=== PATIENT | female | born 1995 | race Caucasian/White ===

== ENCOUNTER 2020-10-17 10:08 | Emergency (ER) | payer SELFPAY ==
[~2020-10-17] VITALS: Ht 170.2 cm; Wt 61.0 kg
[2020-10-17] MEDS ORDERED: ACETAMINOPHEN 500 MG TABLET PO ONE (10:45)
[2020-10-17] MEDS ORDERED: FLUORESCEIN SODIUM 1 MG STRIP OD ONE (10:45)
[2020-10-17] MEDS ORDERED: PROPARACAINE HCL 0.5% 15 ML OPHTHALMIC SOLUTION OD ONE (10:45)
[2020-10-17 11:40] VITALS: BP 115/82
[2020-10-17] MEDS ORDERED: CLINDAMYCIN HCL 150 MG CAPSULE PO ONE (11:45)
== END 2020-10-17 12:02 | disposition home or self-care (01) ==
LOC: EMS 10:12
DX: S05.01XA Injury of conjunctiva and corneal abrasion without foreign body, right eye, initial encounter (principal); X58.XXXA Exposure to other specified factors, initial encounter; Y93.89 Activity, other specified; Y92.89 Other specified places as the place of occurrence of the external cause; Y99.8 Other external cause status
CPT/HCPCS: 99284; Z7502; Z7610

== ENCOUNTER 2020-10-25 07:55 | Emergency (ER) | payer MEDICAID ==
[~2020-10-25] VITALS: Ht 170.2 cm; Wt 63.6 kg
[2020-10-25 07:56] VITALS: BP 119/87
[2020-10-25] MEDS ORDERED: PROPARACAINE HCL 0.5% 15 ML OPHTHALMIC SOLUTION OU ONE (08:15)
[2020-10-25] MEDS ORDERED: VANCOMYCIN OD (08:19)
[2020-10-25] MEDS ORDERED: CYCL12OS OD (08:19)
[2020-10-25] MEDS ORDERED: MOXIOS OD (08:19)
[2020-10-25] MEDS ORDERED: HYDR-4723 PO (08:19)
[2020-10-25] MEDS ORDERED: FLUORESCEIN SODIUM 1 MG STRIP ONE (08:20)
== END 2020-10-25 09:22 | disposition home or self-care (01) ==
LOC: EMS 08:00
DX: S05.01XA Injury of conjunctiva and corneal abrasion without foreign body, right eye, initial encounter (principal); X58.XXXA Exposure to other specified factors, initial encounter; Y93.89 Activity, other specified; Y92.89 Other specified places as the place of occurrence of the external cause; Y99.8 Other external cause status
CPT/HCPCS: 99173; 99283

== ENCOUNTER 2020-11-06 00:05 | Emergency (ER) | payer MEDICAID ==
[~2020-11-06] VITALS: Ht 170.2 cm; Wt 60.9 kg
[~2020-11-06 00:05] MED LIST: CYCL12OS OD; HYDR-4723 PO; MOXIOS OD; VANCOMYCIN OD
[2020-11-06 01:00] VITALS: BP 108/60
[2020-11-06] MEDS ORDERED: PROPARACAINE HCL 0.5% 15 ML OPHTHALMIC SOLUTION OD ONE (01:00)
[2020-11-06] MEDS ORDERED: FLUORESCEIN SODIUM 1 MG STRIP OD ONE (01:00)
== END 2020-11-06 01:15 | disposition home or self-care (01) ==
LOC: EMS 00:06
DX: H16.001 Unspecified corneal ulcer, right eye (principal)
CPT/HCPCS: 99282; Z7502

== ENCOUNTER 2020-11-08 07:57 | Emergency (ER) | payer MEDICAID ==
[~2020-11-08] VITALS: Ht 170.2 cm; Wt 60.9 kg
[2020-11-08] MEDS ORDERED: TOBR5DRO43 OU (08:04)
[2020-11-08] MEDS ORDERED: PROPARACAINE HCL 0.5% 15 ML OPHTHALMIC SOLUTION OD ONE (08:30)
[2020-11-08 08:31] VITALS: BP 141/86
== END 2020-11-08 09:02 | disposition home or self-care (01) ==
LOC: EMS 08:00
DX: H16.001 Unspecified corneal ulcer, right eye (principal); Z91.018 Allergy to other foods
CPT/HCPCS: 99283

== ENCOUNTER 2023-03-16 14:25 | Emergency (ER) | payer MEDICAID, OTHER ==
[~2023-03-16] VITALS: Ht 170.2 cm; Wt 65.9 kg
[~2023-03-16 14:25] MED LIST changes: +MOXI3DRO25 OD; -MOXIOS OD; +TOBR5DRO43 OU
[2023-03-16 14:27] VITALS: TEMP 98.5
[2023-03-16] MEDS ORDERED: KETOROLAC TROMETHAMINE 30 MG/ML VIAL IVP ONE (15:30)
[2023-03-16] MEDS ORDERED: ONDANSETRON HCL 4 MG/2 ML VIAL IVP ONE (15:30)
[2023-03-16] MEDS ORDERED: SODIUM CHLORIDE 0.9% 1,000 ML IV ONE (15:30)
[2023-03-16 15:55] LABS: BASOPHILS % (AUTO) 0.5 % (0.0-2.0); EOSINOPHILS % (AUTO) 0.1 % (1.0-6.0); HEMATOCRIT 41.4 % (36-46); HEMOGLOBIN 13.7 g/dL (12.0-16.0); LYMPHOCYTES # (AUTO) 0.8 K/uL (1.0-4.8); LYMPHOCYTES % (AUTO) 11.5 % (22.0-44.0); MEAN CORPUSCULAR HEMOGLOBIN 28.3 pg (26.0-34.0); MEAN CORPUSCULAR VOLUME 86 fL (80-100); MONOCYTES # (AUTO) 0.1 K/uL (0.1-1.0); MONOCYTES % (AUTO) 1.9 % (2.0-9.0); NEUTROPHILS # (AUTO) 6.2 K/uL (1.8-7.7); PLATELET COUNT (AUTO) 327 K/uL (150-450); RED BLOOD CELL COUNT(AUTO) 4.84 MIL/uL (4.00-5.20); WHITE BLOOD COUNT (AUTO) 7.2 K/uL (4.5-11.0)
[2023-03-16 16:04] LABS: ANION GAP 15 mmol/L (8-16); CALCIUM, TOTAL 10.1 mg/dL (8.8-10.5); CARBON DIOXIDE 22 mmol/L (22-29); CHLORIDE 102 mmol/L (98-107); CREATININE 0.67 mg/dL (0.60-1.30); GLOMERULAR FILTR. RATE CALC > 60 mL/min (>60); GLUCOSE,RANDOM 123 mg/dL (70-110); POTASSIUM 3.6 mmol/L (3.5-5.1); SODIUM SERUM 139 mmol/L (136-145); UREA NITROGEN, BLOOD 8 mg/dL (7-18)
[2023-03-16 16:17] LABS: ALANINE AMINOTRANSFERASE 12 U/L (12-78); ALBUMIN 4.3 g/dL (3.4-5.0); ALKALINE PHOSPHATASE 79 U/L (46-116); ASPARTATE AMINOTRANSFERASE 16 U/L (15-37); BILIRUBIN,TOTAL 0.6 mg/dL (0.1-1.0); HCG,QUANTITATIVE < 1 mIU/mL (0-6); TOTAL PROTEIN, SERUM 7.9 g/dL (6.4-8.2)
[2023-03-16] MEDS ORDERED: ACETAMINOPHEN 1000 MG/ISO-OSM 100 ML IV ONE (16:45)
[2023-03-16] MEDS ORDERED: CloNIDine HCL 0.2 MG TABLET PO ONE (16:45)
[2023-03-16] MEDS ORDERED: CLON-441 PO (17:50)
[2023-03-16] MEDS ORDERED: ONDA-104 PO (17:50)
[2023-03-16] MEDS ORDERED: IBUP-1492 PO (17:50)
[2023-03-16 17:58] VITALS: BP 126/74; PULSE 83; RESP 16
== END 2023-03-16 18:47 | disposition home or self-care (01) ==
LOC: EMS 14:43
DX: F11.23 Opioid dependence with withdrawal (principal); Z91.018 Allergy to other foods
CPT/HCPCS: 99284; 96365; 96375; 96361; 80053; 84702; 85025; 36415; J1885; J2405; J7030; J0131

== ENCOUNTER 2023-03-17 13:16 | Inpatient (IN) | payer OTHER ==
[~2023-03-17] VITALS: Ht 170.2 cm; Wt 65.9 kg
[~2023-03-17 13:16] MED LIST changes: +CLON-441 PO; +IBUP-1492 PO; +ONDA-104 PO
[2023-03-17] MEDS ORDERED: DIPHENOXYLATE/ATROP 2.5-0.025 MG TABLET PO ONE (14:30)
[2023-03-17] MEDS ORDERED: BUPRENORPHINE HCL/NALOXONE HCL 8-2 MG SUBLINGUAL TABLET SL ONE (14:30)
[2023-03-17] MEDS ORDERED: KETOROLAC TROMETHAMINE 30 MG/ML VIAL IVP ONE (14:30)
[2023-03-17] MEDS ORDERED: SODIUM CHLORIDE 0.9% 2,000 ML IV ONE (14:30)
[2023-03-17] MEDS ORDERED: ONDANSETRON HCL 4 MG/2 ML VIAL IVP ONE (14:30)
[2023-03-17 15:22] LABS: BASOPHILS % (AUTO) 0.2 % (0.0-2.0); EOSINOPHILS % (AUTO) 0.4 % (1.0-6.0); HEMATOCRIT 42.1 % (36-46); HEMOGLOBIN 14.1 g/dL (12.0-16.0); LYMPHOCYTES % (AUTO) 10.9 % (22.0-44.0); MEAN CORPUSCULAR HEMOGLOBIN 28.8 pg (26.0-34.0); MEAN CORPUSCULAR HGB CONC 33.5 G/dL (31.0-37.0); MEAN CORPUSCULAR VOLUME 86 fL (80-100); MONOCYTES # (AUTO) 0.4 K/uL (0.1-1.0); NEUTROPHILS # (AUTO) 7.5 K/uL (1.8-7.7); NEUTROPHILS % (AUTO) 84.5 % (40.0-70.0); PLATELET COUNT (AUTO) 282 K/uL (150-450); RED CELL DISTRIBUTION WIDTH 13.3 % (11.5-14.5); WHITE BLOOD COUNT (AUTO) 8.9 K/uL (4.5-11.0)
[2023-03-17 15:32] LABS: ANION GAP 13 mmol/L (8-16); CALCIUM, TOTAL 9.9 mg/dL (8.8-10.5); CARBON DIOXIDE 22 mmol/L (22-29); CHLORIDE 105 mmol/L (98-107); CREATININE 0.72 mg/dL (0.60-1.30); GLOMERULAR FILTR. RATE CALC > 60 mL/min (>60); GLUCOSE,RANDOM 121 mg/dL (70-110); POTASSIUM 3.2 mmol/L (3.5-5.1); SODIUM SERUM 140 mmol/L (136-145); UREA NITROGEN, BLOOD 9 mg/dL (7-18)
[2023-03-17 15:37] LABS: ALANINE AMINOTRANSFERASE 10 U/L (12-78); ALBUMIN 4.3 g/dL (3.4-5.0); ALKALINE PHOSPHATASE 86 U/L (46-116); ASPARTATE AMINOTRANSFERASE 14 U/L (15-37); BILIRUBIN,TOTAL 0.6 mg/dL (0.1-1.0); TOTAL PROTEIN, SERUM 7.9 g/dL (6.4-8.2)
[2023-03-17 15:41] LABS: ALCOHOL, BLOOD (SERUM) < 3 mg/dL (0-10)
[2023-03-17] MEDS ORDERED: POTASSIUM CHLORIDE 10% 40 MEQ/30 ML LIQUID UDCUP PO ONE (16:00)
[2023-03-17] MEDS ORDERED: METOCLOPRAMIDE HCL 5 MG/ML 2 ML VIAL IVP ONE (17:15)
[2023-03-17] MEDS ORDERED: POTASSIUM CHL 10 MEQ/WATER 50 ML IV PRN (18:00)
[2023-03-17] MEDS ORDERED: ONDANSETRON HCL 4 MG/2 ML VIAL IVP PRN (18:00)
[2023-03-17] MEDS ORDERED: MAGNESIUM HYDROXIDE SUSPENSION 30 ML UDCUP PO PRN (18:00)
[2023-03-17] MEDS ORDERED: SODIUM CHLORIDE 0.9% 1,000 ML IV ONE (18:00)
[2023-03-17] MEDS: FAMOTIDINE 20 MG TABLET PO SCH (18:08)
[2023-03-17 20:22] LABS: COVID AG,FIA SOURCE NASAL SWAB
[2023-03-17] MEDS: ACETAMINOPHEN 325 MG TABLET PO PRN (20:39)
[2023-03-17 20:45] VITALS: BP 138/75; PULSE 53; RESP 20; TEMP 99.6
[2023-03-17 21:04] LABS: SARS-COV2 (COVID) ANTIGEN,FIA Negative (Negative)
[2023-03-17] MEDS: ZOLPIDEM TARTRATE 5 MG TABLET PO PRN (21:24)
[2023-03-18] MEDS: ACETAMINOPHEN 325 MG TABLET PO PRN ×2 (01:03→06:43)
[2023-03-18 01:51] LABS: APPEARANCE,URINE CLEAR (CLEAR); BILIRUBIN,URINE NEGATIVE (NEGATIVE); COLOR,URINE LIGHT YELLOW (YELLOW); GLUCOSE, URINE (UA) NEGATIVE (NEGATIVE); KETONES,URINE NEGATIVE (NEGATIVE); LEUKOCYTE ESTERASE ,URINE NEGATIVE (NEGATIVE); NITRATE,URINE NEGATIVE (NEGATIVE); OCCULT BLOOD,URINE NEGATIVE (NEGATIVE); PROTEIN,URINE NEGATIVE (NEGATIVE); SPECIFIC GRAVITIY, URINE 1.011 (1.003-1.030); UROBILINOGEN,URINE <=1.0 mg/dL (<=1.0)
[2023-03-18 01:56] LABS: ALCOHOL, URINE DRUG SCREEN NEGATIVE (NEGATIVE); AMPHET/METH SCREEN,URINE NEGATIVE (NEGATIVE); BARBITURATE SCREEN, URINE NEGATIVE (NEGATIVE); BENZODIAZEPINES SCREEN,URINE NEGATIVE (NEGATIVE); CANNABINOID SCREEN,URINE NEGATIVE (NEGATIVE); COCAINE SCREEN,URINE NEGATIVE (NEGATIVE); METHADONE SCREEN, URINE NEGATIVE (NEGATIVE); OPIATE SCREEN,URINE NEGATIVE (NEGATIVE); PHENCYCLIDINE SCREEN,URINE NEGATIVE (NEGATIVE)
[2023-03-18 02:40] VITALS: BP 128/77; PULSE 57; RESP 18; TEMP 99.1
[2023-03-18] MEDS: LORazepam 2 MG/ML VIAL IVP PRN ×3 (02:42→17:15)
[2023-03-18 08:00] VITALS: BP 132/67; PULSE 59; RESP 18; TEMP 98.6
[2023-03-18 09:22] LABS: ANION GAP 11 mmol/L (8-16); CALCIUM, TOTAL 8.4 mg/dL (8.8-10.5); CARBON DIOXIDE 22 mmol/L (22-29); CHLORIDE 106 mmol/L (98-107); CREATININE 0.65 mg/dL (0.60-1.30); GLOMERULAR FILTR. RATE CALC > 60 mL/min (>60); GLUCOSE,RANDOM 151 mg/dL (70-110); POTASSIUM 3.1 mmol/L (3.5-5.1); SODIUM SERUM 139 mmol/L (136-145); UREA NITROGEN, BLOOD 5 mg/dL (7-18)
[2023-03-18] MEDS ORDERED: POTASSIUM CHLORIDE 20 MEQ ER TABLET PO PRN (09:30)
[2023-03-18] MEDS ORDERED: POTASSIUM CHL 10 MEQ/WATER 50 ML IV PRN (09:30)
[2023-03-18] MEDS ORDERED: SODIUM CHLORIDE 0.9% 1,000 ML IV ONE (09:30)
[2023-03-18] MEDS: FAMOTIDINE 20 MG TABLET PO SCH ×2 (09:59→20:22)
[2023-03-18] MEDS: POTASSIUM CHLORIDE 20 MEQ ER TABLET PO PRN ×2 (09:59→17:14)
[2023-03-18 15:32] VITALS: BP 147/72; PULSE 60; RESP 20; TEMP 99.2
[2023-03-18 19:45] VITALS: BP 136/81; PULSE 75; RESP 20; TEMP 99.5
[2023-03-18] MEDS: KETOROLAC TROMETHAMINE 15 MG/ML VIAL IVP PRN (20:22)
[2023-03-18] MEDS: ZOLPIDEM TARTRATE 5 MG TABLET PO PRN (20:22)
[2023-03-19] MEDS: LORazepam 2 MG/ML VIAL IVP PRN ×3 (00:22→23:42)
[2023-03-19 04:00] VITALS: BP 129/76; PULSE 75; RESP 20; TEMP 98.7
[2023-03-19] MEDS: KETOROLAC TROMETHAMINE 15 MG/ML VIAL IVP PRN ×3 (04:10→19:30)
[2023-03-19] MEDS: FAMOTIDINE 20 MG TABLET PO SCH ×2 (09:00→19:55)
[2023-03-19 11:51] VITALS: BP 136/78; PULSE 79; RESP 20; TEMP 98.9
[2023-03-19 12:33] LABS: ANION GAP 10 mmol/L (8-16); CALCIUM, TOTAL 9.3 mg/dL (8.8-10.5); CARBON DIOXIDE 23 mmol/L (22-29); CHLORIDE 105 mmol/L (98-107); CREATININE 0.77 mg/dL (0.60-1.30); GLOMERULAR FILTR. RATE CALC > 60 mL/min (>60); GLUCOSE,RANDOM 133 mg/dL (70-110); POTASSIUM 3.4 mmol/L (3.5-5.1); SODIUM SERUM 138 mmol/L (136-145); UREA NITROGEN, BLOOD 4 mg/dL (7-18)
[2023-03-19 17:34] VITALS: BP 124/74; PULSE 70; RESP 20; TEMP 98.8
[2023-03-19] MEDS: LOPERAMIDE HCL 2 MG CAPSULE PO PRN (19:56)
[2023-03-19 20:24] VITALS: BP 127/81; PULSE 76; RESP 20; TEMP 98.9
[2023-03-19] MEDS: ZOLPIDEM TARTRATE 5 MG TABLET PO PRN (21:37)
[2023-03-20 04:29] VITALS: BP 133/82; PULSE 74; RESP 20; TEMP 99.2
[2023-03-20] MEDS: FAMOTIDINE 20 MG TABLET PO SCH (09:23)
[2023-03-20] MEDS: KETOROLAC TROMETHAMINE 15 MG/ML VIAL IVP PRN (09:24)
[2023-03-20 09:56] LABS: ANION GAP 6 mmol/L (8-16); CALCIUM, TOTAL 9.2 mg/dL (8.8-10.5); CARBON DIOXIDE 26 mmol/L (22-29); CHLORIDE 105 mmol/L (98-107); CREATININE 0.65 mg/dL (0.60-1.30); GLOMERULAR FILTR. RATE CALC > 60 mL/min (>60); GLUCOSE,RANDOM 107 mg/dL (70-110); POTASSIUM 3.7 mmol/L (3.5-5.1); SODIUM SERUM 137 mmol/L (136-145); UREA NITROGEN, BLOOD 6 mg/dL (7-18)
[2023-03-20] MEDS: LOPERAMIDE HCL 2 MG CAPSULE PO PRN (13:16)
[2023-03-20 16:25] VITALS: BP 129/75; PULSE 75; RESP 19; TEMP 97.8
== END 2023-03-20 16:30 | disposition home or self-care (01) | DRG 773 ==
LOC: EMS 13:16 → 6S 17:59
PROVIDERS: ADMIT Internal Medicine; ATTEND Internal Medicine
DX: F11.13 Opioid abuse with withdrawal (principal); E87.6 Hypokalemia; Z20.822 Contact with and (suspected) exposure to COVID-19; Z79.899 Other long term (current) drug therapy; Z91.018 Allergy to other foods
CPT/HCPCS: 80048; 80053; 80307; 81003; 84132; 85025; 99285; G0480; J1885; J2060; J2405; J2765; J7030